=== PATIENT | male | born 1990 | race Caucasian/White ===

== ENCOUNTER 2017-10-25 18:33 | Inpatient (IN) | payer SELFPAY ==
[~2017-10-25] VITALS: Ht 170.2 cm; Wt 101.3 kg
[2017-10-25] MEDS ORDERED: SODIUM CHLORIDE 0.9% 1,000 ML IV ONE (23:41)
[2017-10-26] VITALS (22 sets, daily range): BP systolic 95–148; BP diastolic 52–90
[2017-10-26 00:03] LABS: BASOPHILS % 0.7 % (0.0-2.0); HEMATOCRIT. 49.6 % (42.0-52.0); HEMOGLOBIN. 17.1 g/dL (14.0-18.0); LYMPHOCYTES % 25.8 % (20.0-50.0); MEAN CORPUSCULAR VOLUME 78.3 fL (80.0-94.0); MEAN PLATELET VOLUME 9.3 fl (7.4-10.4); MONOCYTES % 6.1 % (2.0-8.0); NEUTROPHILS % 66.4 % (40.0-76.0); PLATELET 282 x1000/uL (130-400); RED BLOOD CELL COUNT 6.33 mill/uL (4.7-6.1); RED CELL DISTRIBUTION WIDTH 14.4 % (11.6-14.6)
[2017-10-26 00:17] LABS: CLARITY URINE CLEAR (CLEAR); COLOR URINE YELLOW (YELLOW); KETONES URINE 4+ (NEGATIVE); LEUKOCYTE ESTERASE URINE NEGATIVE (NEGATIVE); NITRITE URINE NEGATIVE (NEGATIVE); OCCULT BLOOD URINE 2+ (NEGATIVE); PH URINE 5.5 (4.5-8.0); PROTEIN URINE 3+ (NEGATIVE); SPECIFIC GRAVITY URINE 1.032 (1.005-1.030); UROBILINOGEN URINE 0.2 E.U./dL (0.2-1.0)
[2017-10-26 00:26] LABS: CHLORIDE 102 mEq/L (98-107)
[2017-10-26 00:34] LABS: BETA HYDROXYBUTYRATE 8.3 mMol/L (0.0-0.3)
[2017-10-26] MEDS ORDERED: INSULIN REGULAR (DRIP) 100 UNITS in SODIUM CHLORIDE 0.9% 99 ML IV SCH (00:45)
[2017-10-26 00:51] LABS: BG BASE EXCESS -19.8 mmol/L (-2.0-2.0); BG CARBOXYHEMOGLOBIN 0.4 % (0.5-1.5); BG DEOXYHEMOGLOBIN 1.8 % (0.0-5.0); BG FRACTION INSPIRED OXYGEN 21; BG HCO3 ACT 5.2 mmol/L (22.0-26.0); BG METHEMOGLOBIN 0.2 % (0.0-1.5); BG OXYGEN SATURATION 98.2 % (92.0-98.5); BG OXYHEMOGLOBIN 97.6 % (94.0-97.0); BG PCO2 13.5 mmHg (35.0-45.0); BG PH 7.205 (7.350-7.450); BG PO2 116.8 mmHg (75.0-100.0); BG SAMPLE SITE RIGHT RADIAL; BG TOTAL HEMOGLOBIN 16.3 g/dL (12.0-18.0); BG VENT MODE ROOM AIR
[2017-10-26] MEDS ORDERED: SODIUM CHLORIDE 0.9% 1000ML BAG (SEPSIS BOLUS) IV ONE (01:00)
[2017-10-26] MEDS ORDERED: SODIUM CHLORIDE 0.9% 1,000 ML IV SCH (04:52)
[2017-10-26] MEDS ORDERED: MORPHINE SULFATE 4 MG/ML CPJ (NOT FOR IM USE) IV PRN (04:53)
[2017-10-26] MEDS ORDERED: ONDANSETRON HCL 4MG/2ML VIAL IV PRN (04:53)
[2017-10-26 05:44] LABS: BASOPHILS % 0.8 % (0.0-2.0); EOSINOPHILS % 1.4 % (0.0-5.0); HEMATOCRIT. 44.2 % (42.0-52.0); HEMOGLOBIN. 15.2 g/dL (14.0-18.0); LYMPHOCYTES % 36.9 % (20.0-50.0); MEAN CORPUSCULAR HEMOGLOBIN 26.6 pg (28.0-32.0); MEAN CORPUSCULAR VOLUME 77.2 fL (80.0-94.0); MEAN PLATELET VOLUME 9.1 fl (7.4-10.4); MONOCYTES % 7.5 % (2.0-8.0); NEUTROPHILS % 53.4 % (40.0-76.0); PLATELET 241 x1000/uL (130-400); RED BLOOD CELL COUNT 5.73 mill/uL (4.7-6.1); RED CELL DISTRIBUTION WIDTH 14.1 % (11.6-14.6)
[2017-10-26 05:53] LABS: CHLORIDE 109 mEq/L (98-107)
[2017-10-26] MEDS: DEXT 5%/0.9% NACL 1,000 ML IV SCH ×2 (06:34→15:07)
[2017-10-26] MEDS ORDERED: DEXTROSE 50% WATER 50ML SYRINGE IV PRN ×2 (07:45)
[2017-10-26] MEDS: BLOOD SUGAR DIAGNOSTIC STRIP TEST SCH ×17 (08:00→23:55)
[2017-10-26 08:34] LABS: CLARITY URINE CLEAR (CLEAR); COLOR URINE YELLOW (YELLOW); KETONES URINE 4+ (NEGATIVE); LEUKOCYTE ESTERASE URINE NEGATIVE (NEGATIVE); NITRITE URINE NEGATIVE (NEGATIVE); OCCULT BLOOD URINE 1+ (NEGATIVE); PH URINE 5.5 (4.5-8.0); PROTEIN URINE 2+ (NEGATIVE); SPECIFIC GRAVITY URINE 1.028 (1.005-1.030); UROBILINOGEN URINE 0.2 E.U./dL (0.2-1.0)
[2017-10-26] MEDS ORDERED: POTASSIUM CHLORIDE INJ 40 MEQ in DEXT 5% WATER 250 ML IV NR (09:00)
[2017-10-26] MEDS: PANTOPRAZOLE SODIUM 40 MG/VIAL IV SCH (09:04)
[2017-10-26] MEDS: INSULIN REGULAR (DRIP) 100 UNITS in SODIUM CHLORIDE 0.9% 100 ML IV SCH (10:34)
[2017-10-26] MEDS ORDERED: SODIUM BICARBONATE 8.4% 1 MEQ/ML 50ML SYR IV NR (13:45)
[2017-10-26 15:04] LABS: CHLORIDE 110 mEq/L (98-107)
[2017-10-26] MEDS: DEXT 5%/0.9% NACL KCL 20MEQ/L 1,000 ML IV SCH (17:20)
[2017-10-26 19:56] LABS: CHLORIDE 111 mEq/L (98-107)
[2017-10-27] VITALS (24 sets, daily range): BP systolic 103–146; BP diastolic 56–85
[2017-10-27] MEDS: INSULIN REGULAR (DRIP) 100 UNITS in SODIUM CHLORIDE 0.9% 100 ML IV SCH (00:51)
[2017-10-27] MEDS: BLOOD SUGAR DIAGNOSTIC STRIP TEST SCH ×22 (00:56→23:08)
[2017-10-27] MEDS: DEXT 5%/0.9% NACL KCL 20MEQ/L 1,000 ML IV SCH ×2 (03:04→13:17)
[2017-10-27 05:41] LABS: EOSINOPHILS % 3.5 % (0.0-5.0); HEMATOCRIT. 39.9 % (42.0-52.0); HEMOGLOBIN. 13.9 g/dL (14.0-18.0); LYMPHOCYTES % 29.7 % (20.0-50.0); MEAN CORPUSCULAR HEMOGLOBIN 26.3 pg (28.0-32.0); MEAN CORPUSCULAR VOLUME 75.7 fL (80.0-94.0); MEAN PLATELET VOLUME 8.8 fl (7.4-10.4); MONOCYTES % 8.7 % (2.0-8.0); NEUTROPHILS % 57.1 % (40.0-76.0); PLATELET 202 x1000/uL (130-400); RED BLOOD CELL COUNT 5.27 mill/uL (4.7-6.1)
[2017-10-27 05:57] LABS: CHLORIDE 111 mEq/L (98-107)
[2017-10-27] MEDS ORDERED: KCL 20MEQ/100ML PREMIX 100 ML IV SCH (07:30)
[2017-10-27] MEDS ORDERED: POTASSIUM CHLORIDE INJ 40 MEQ in DEXT 5% WATER 250 ML IV SCH (08:00)
[2017-10-27 08:07] LABS: PHOSPHORUS 0.8 mg/dL (2.5-4.9)
[2017-10-27] MEDS: PANTOPRAZOLE SODIUM 40 MG/VIAL IV SCH (08:43)
[2017-10-27] MEDS ORDERED: POTASSIUM PHOS,M-BASIC-D-BASIC 30 MMOL in DEXT 5% WATER 500 ML IV ONE (09:00)
[2017-10-27 16:42] LABS: CHLORIDE 113 mEq/L (98-107)
[2017-10-27 16:43] LABS: BETA HYDROXYBUTYRATE 1.4 mMol/L (0.0-0.3)
[2017-10-27] MEDS ORDERED: POTASSIUM CHLORIDE 20MEQ TABLET SR PO SCH (19:15)
[2017-10-28] VITALS (19 sets, daily range): BP systolic 112–151; BP diastolic 50–89
[2017-10-28] MEDS: BLOOD SUGAR DIAGNOSTIC STRIP TEST SCH ×12 (00:43→21:12)
[2017-10-28] MEDS: DEXT 5%/0.9% NACL KCL 20MEQ/L 1,000 ML IV SCH (00:43)
[2017-10-28 05:44] LABS: EOSINOPHILS % 3.5 % (0.0-5.0); HEMATOCRIT. 39.1 % (42.0-52.0); HEMOGLOBIN. 13.6 g/dL (14.0-18.0); LYMPHOCYTES % 39.8 % (20.0-50.0); MEAN CORPUSCULAR HEMOGLOBIN 26.5 pg (28.0-32.0); MEAN CORPUSCULAR VOLUME 75.8 fL (80.0-94.0); MEAN PLATELET VOLUME 9.2 fl (7.4-10.4); NEUTROPHILS % 46.7 % (40.0-76.0); PLATELET 184 x1000/uL (130-400); RED BLOOD CELL COUNT 5.16 mill/uL (4.7-6.1); RED CELL DISTRIBUTION WIDTH 14.1 % (11.6-14.6)
[2017-10-28] MEDS: INSULIN REGULAR (DRIP) 100 UNITS in SODIUM CHLORIDE 0.9% 100 ML IV SCH (06:08)
[2017-10-28 06:12] LABS: CHLORIDE 107 mEq/L (98-107)
[2017-10-28 06:21] LABS: PHOSPHORUS 1.4 mg/dL (2.5-4.9)
[2017-10-28] MEDS ORDERED: POTASSIUM CHLORIDE 20MEQ TABLET SR PO SCH (08:15)
[2017-10-28] MEDS ORDERED: KCL 20MEQ/100ML PREMIX 100 ML IV ONE ×2 (08:15)
[2017-10-28] MEDS: PANTOPRAZOLE SODIUM 40 MG/VIAL IV SCH (08:44)
[2017-10-28] MEDS ORDERED: POTASSIUM CHLORIDE INJ 40 MEQ in DEXT 5% WATER 250 ML IV SCH (09:00)
[2017-10-28] MEDS: INSULIN GLARGINE UD 100 UNITS/ML SYR SUBCUT SCH (10:16)
[2017-10-28] MEDS ORDERED: DEXTROSE 50% WATER 50ML SYRINGE IV PRN ×2 (11:45→12:00)
[2017-10-28] MEDS: INSULIN LISPRO 100 UNITS/ML SUBCUT SCH ×3 (12:17→21:25)
[2017-10-28] MEDS ORDERED: BLOOD SUGAR DIAGNOSTIC STRIP TEST SCH (12:50)
[2017-10-28] MEDS ORDERED: POTASSIUM-SODIUM PHOSPHATE POWDER PACKET PO SCH (13:30)
[2017-10-29] VITALS (7 sets, daily range): BP systolic 118–138; BP diastolic 75–85
[2017-10-29 05:40] LABS: BASOPHILS % 0.6 % (0.0-2.0); HEMATOCRIT. 38.7 % (42.0-52.0); HEMOGLOBIN. 13.3 g/dL (14.0-18.0); LYMPHOCYTES % 45.8 % (20.0-50.0); MEAN CORPUSCULAR HEMOGLOBIN 26.2 pg (28.0-32.0); MEAN CORPUSCULAR VOLUME 76.4 fL (80.0-94.0); MEAN PLATELET VOLUME 9.5 fl (7.4-10.4); MONOCYTES % 8.1 % (2.0-8.0); NEUTROPHILS % 41.5 % (40.0-76.0); PLATELET 176 x1000/uL (130-400); RED BLOOD CELL COUNT 5.07 mill/uL (4.7-6.1); RED CELL DISTRIBUTION WIDTH 14.2 % (11.6-14.6)
[2017-10-29] MEDS: BLOOD SUGAR DIAGNOSTIC STRIP TEST SCH ×2 (06:52→12:46)
[2017-10-29 07:39] LABS: CHLORIDE 102 mEq/L (98-107)
[2017-10-29] MEDS: INSULIN LISPRO 100 UNITS/ML SUBCUT SCH ×2 (08:58→13:13)
[2017-10-29] MEDS: PANTOPRAZOLE SODIUM 40 MG/VIAL IV SCH (08:58)
[2017-10-29] MEDS: INSULIN GLARGINE UD 100 UNITS/ML SYR SUBCUT SCH (10:10)
[2017-10-29] MEDS ORDERED: POTASSIUM CHLORIDE 20MEQ TABLET SR PO NR (12:00)
== END 2017-10-29 18:50 | disposition home or self-care (01) | DRG 420 ==
LOC: ER 18:33 → CVICU 10-26 01:07 → ENRESERV 10-26 01:55 → 7WST 10-28 17:45
PROVIDERS: ADMIT Hospitalist; ATTEND Hospitalist
DX: E11.10 Type 2 diabetes mellitus with ketoacidosis without coma (principal); R13.10 Dysphagia, unspecified; K21.9 Gastro-esophageal reflux disease without esophagitis; Z83.3 Family history of diabetes mellitus
CPT/HCPCS: 36415; 36600; 71045; 74176; 80048; 80053; 81003; 82010; 82375; 82805; 82962; 83036; 83690; 83735; 84100; 84484; 85025; 96361; 96374; 99291; C9113; J1815; J2270; J2405; J3480; J3490; J7030; J7042; J7050; J7060

== ENCOUNTER 2019-09-03 21:23 | Emergency (ER) | payer SELFPAY ==
[~2019-09-03] VITALS: Ht 172.7 cm; Wt 76.0 kg
[2019-09-04] MEDS ORDERED: SODIUM CHLORIDE 0.9% 1,000 ML IV ONE (00:28)
[2019-09-04] MEDS ORDERED: INSULIN REGULAR (HUMULIN R) 300UNITS/3ML SUBCUT ONE (00:30)
[2019-09-04 01:04] LABS: CHLORIDE 103 mEq/L (98-107)
[2019-09-04 01:06] LABS: BASOPHILS % 0.9 % (0.0-2.0); EOSINOPHILS % 2.7 % (0.0-5.0); HEMATOCRIT. 42.6 % (42.0-52.0); HEMOGLOBIN. 14.5 g/dL (14.0-18.0); LYMPHOCYTES % 32.8 % (20.0-50.0); MEAN CORPUSCULAR HEMOGLOBIN 25.9 pg (28.0-32.0); MEAN CORPUSCULAR VOLUME 76.2 fL (80.0-94.0); MEAN PLATELET VOLUME 8.7 fl (7.4-10.4); NEUTROPHILS % 56.6 % (40.0-76.0); PLATELET 309 x1000/uL (130-400); RED CELL DISTRIBUTION WIDTH 13.2 % (11.6-14.6)
[2019-09-04 01:19] LABS: BETA HYDROXYBUTYRATE 1.4 mMol/L (0.0-0.3)
[2019-09-04 01:32] LABS: CLARITY URINE CLEAR (CLEAR); COLOR URINE YELLOW (YELLOW); KETONES URINE 3+ (NEGATIVE); LEUKOCYTE ESTERASE URINE NEGATIVE (NEGATIVE); NITRITE URINE NEGATIVE (NEGATIVE); OCCULT BLOOD URINE NEGATIVE (NEGATIVE); PROTEIN URINE 1+ (NEGATIVE); SPECIFIC GRAVITY URINE 1.044 (1.005-1.030); UROBILINOGEN URINE 0.2 E.U./dL (0.2-1.0)
[2019-09-04 03:58] VITALS: BP 118/67
== END 2019-09-04 04:01 | disposition home or self-care (01) ==
LOC: ER 21:23
DX: E11.65 Type 2 diabetes mellitus with hyperglycemia (principal); K21.9 Gastro-esophageal reflux disease without esophagitis; E78.00 Pure hypercholesterolemia, unspecified; I10 Essential (primary) hypertension; Z79.84 Long term (current) use of oral hypoglycemic drugs
CPT/HCPCS: 36415; 80053; 81003; 82010; 82962; 83690; 85025; 96360; 96372; 99283; J1815; J7030; Z7610